=== PATIENT | male | born 1995 | race Caucasian/White ===

== ENCOUNTER 2017-01-05 08:27 | Emergency (ER) | payer BC ==
[2017-01-05 08:42] VITALS: BP 142/81
--- NOTE | 2017-01-05 08:44 | UC ---
Shoulder Pain HPI - HPI Summary HPI Summary: 21 year old male presents with complains of right neck/shoulder pain after wrestling with his girlfriend. - History of Current Complaint Stated Complaint: RIGHTSIDE NECK/SHOULDER/ARM PAIN Time Seen by Provider: 01/05/17 08:30 - Allergies/Home Medications Allergies/Adverse Reactions: Allergies Allergy/AdvReac Type Severity Reaction Status Date / Time latex tape Allergy See Comment Uncoded 01/05/17 08:33 Home Medications: Home Medications Acetaminophen [Tylenol] 650 mg PO Q4H PRN 01/05/17 [History Confirmed 01/05/17] Amphetamine-Dextroamphetamine [Adderall Xr 10 mg-] 1 cap PO DAILY 01/05/17 [ History Confirmed 01/05/17] Escitalopram Oxalate [Lexapro 10 mg] 10 mg PO DAILY 01/05/17 [History Confirmed 01/05/17] Metoprolol Succinate [Toprol Xl] 25 mg PO DAILY PRN 01/05/17 [History Confirmed 01/05/17] Review of Systems Constitutional: Negative Skin: Negative Eyes: Negative ENT: Negative Respiratory: Negative Cardiovascular: Negative Gastrointestinal: Negative Genitourinary: Negative Motor: Negative Neurovascular: Negative Musculoskeletal: Myalgia, Other: - right shoulder pain Neurological: Negative Psychological: Negative All Other Systems Reviewed And Are Negative: Yes Physical Exam Triage Information Reviewed: Yes Eye Exam: Normal ENT Exam: Normal Dental Exam: Normal Neck exam: Normal Neck: Positive: 1 Respiratory Exam: Normal Cardiovascular Exam: Normal Abdominal Exam: Normal Musculoskeletal: Positive: Strength Limited @, ROM Limited @, Other: - right shoulder pain Neurological Exam: Normal Psychological Exam: Normal Skin Exam: Normal Shoulder Course/Dx - Differential Dx/Diagnosis Provider Diagnoses: right shoulder pain. right trapezius strain Discharge - Discharge Plan Condition: Stable Disposition: HOME Prescriptions: Meloxicam [Mobic] 7.5 mg PO BID PRN #30 tab PRN Reason: Pain Scale 6-10 Methocarbamol [Robaxin-750 MG TAB] 750 mg PO Q8H PRN #30 tab PRN Reason: Spasms - Back Patient Education Materials: Neck Pain (ED), Shoulder Pain (ED) Referrals: Adeline DIAZ,Arturo Nevarez [Primary Care Provider] -
--- NOTE | 2017-01-05 09:08 | RAD ---
Indication: Right shoulder pain. 4 views of the right shoulder demonstrates no fracture. No other bone or joint abnormality is noted. IMPRESSION: No fracture of the right shoulder is noted.
== END 2017-01-05 09:20 | disposition home or self-care (01) ==
LOC: UCCORT 08:27
DX: S46.811A Strain of other muscles, fascia and tendons at shoulder and upper arm level, right arm, initial encounter (principal); X58.XXXA Exposure to other specified factors, initial encounter; Y93.72 Activity, wrestling; Y92.9 Unspecified place or not applicable
CPT/HCPCS: 99202; G0463